=== PATIENT | female | born 1960 | race Caucasian/White ===

== ENCOUNTER 2017-01-31 22:34 | Emergency (ER) | payer BC ==
[~2017-01-31] VITALS: Ht 162.6 cm; Wt 52.2 kg
[2017-01-31] MEDS ORDERED: NKM (22:48)
[2017-01-31 22:50] VITALS: BP 179/82
[2017-02-01] VITALS: BP 170/80
[2017-02-01] MEDS ORDERED: IBUPROFEN600 MG ORAL (00:17)
--- NOTE | 2017-02-01 02:10 | Emergency Room Report ---
History of Present Illness General Chief Complaint: Pain Source: Patient Present Illness HPI 56YOF walk-in with pain to medial aspect top of right foot after accidentally dropping 1L plastic water bottle on it earlier. Was barefoot at time. Initially no pain - worsened with ambulation. Mild swelling noted. No open wound. Allergies: Coded Allergies: No Known Allergies (Unverified , 01/31/17) Patient History Past Medical History: none Past Surgical History: none Pertinent Family History: none Social History: Denies: alcohol use, drug use, smoking Last Menstrual Period: n/a Now: No Immunizations: UTD Reviewed Nursing Documentation: PMH: Agreed, PSxH: Agreed Nursing Documentation-PMH Past Medical History: No Stated History Review of Systems All Other Systems: negative except mentioned in HPI Physical Exam Vital Signs Date Time Temp Pulse Resp B/P Pulse Ox O2 Delivery O2 Flow Rate FiO2 01/31/17 22:45 98.2 68 22 179/82 98 01/31/17 22:50 Room Air Sp02 EP Interpretation: reviewed, normal General Appearance: normal inspection, well appearing, no apparent distress, alert Head: atraumatic ENT: normal ENT inspection, hearing grossly normal, normal voice Neck: normal inspection, full range of motion, supple, no bony tend Respiratory: normal inspection, lungs clear, normal breath sounds, no respiratory distress, no retraction, no wheezing Cardiovascular #1: regular rate, rhythm, no edema Gastrointestinal: normal inspection, normal bowel sounds, non tender, soft, no guarding, no hernia Genitourinary: no CVA tenderness Musculoskeletal: other - Right foot: Dorsum with swelling, ttp along 1st metatarsal. 2++ dorsalis pedis. 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, motor strength/tone normal, speech normal Psychiatric: normal inspection, judgement/insight normal, mood/affect normal Skin: normal inspection, normal color, no rash Medical Decision Making Diagnostic Impression: Primary Impression: Contusion of foot, right ER Course Xrays negative for acute injury Analgesia provided Advised RICE PMD followup as needed Other X-Ray Diagnostic Results X-Ray ordered: Right foot # of Views/Limited Vs Complete: 3 View Interpretation: no fractures, no dislocation, no soft tissue swelling Indication: Pain Impression: No acute disease Date Electronically Signed: Feb 01, 2017 Time Electronically Signed: 02:12 Interpreting ER Physician: Jesse Last Vital Signs Date Time Temp Pulse Resp B/P Pulse Ox O2 Delivery O2 Flow Rate FiO2 01/31/17 22:50 98.2 68 22 179/82 98 Room Air Status: improved Disposition: HOME, SELF-CARE Condition: Improved Scripts Ibuprofen* (MOTRIN*) 600 Mg Tablet 600 MG ORAL THREE TIMES A DAY for For Pain for 7 Days, #30 TAB 0 Refills Prov: MARILEE CASTILLO M.D. 02/01/17 Referrals: STEPHANIE RODRIGUEZ M.D. (REFERMD) (PCP) Patient Instructions: Foot Contusion, Erev-am-Spdf MARILEE CASTILLO M.D. Feb 01, 2017 02:10
--- NOTE | 2017-02-01 09:03 | Diagnostic Imaging Report ---
Indications: Pain Technique: 3 views of the right foot Findings: Comparison: None. Small well-corticated osseous density resides adjacent to the lateral margin of the fifth proximal phalangeal head. No acute fracture, dislocation, lytic destruction, periosteal reaction, surrounding soft tissue swelling, or other acute changes are demonstrated. No additional deformity, alignment abnormality, arthritic change, soft tissue calcification, or other chronic changes are demonstrated. IMPRESSION: Small osseous density adjacent to the proximal phalangeal head, nonspecific, may represent old unfused avulsion fracture fragment or accessory ossification center Otherwise negative right foot series.
== END 2017-02-01 01:00 | disposition home or self-care (01) ==
LOC: EMR 02-01 00:32
DX: S90.31XA Contusion of right foot, initial encounter (principal); W22.8XXA Striking against or struck by other objects, initial encounter; Y92.89 Other specified places as the place of occurrence of the external cause
CPT/HCPCS: 99283